=== PATIENT | male | born 1935 | race Caucasian/White ===

== ENCOUNTER 2016-08-17 20:13 | Emergency (ER) | payer MEDICARE ==
[~2016-08-17 20:13] MED LIST: BUM2 PO; CORDARONE PO; FISH OIL; HYDROCHLOROT25 MG PO; KLOR-CON M2020 MEQ PO; LISINOPRIL40 MG PO; NORCO1 TA2 PO; SPIRIVA INH; VENTOLIN HFA INH; XARELTO20 MG PO
== END 2016-08-18 00:21 | disposition home or self-care (01) ==
LOC: ER 20:13
PROC: 2W3DX1Z Immobilization of Left Lower Arm using Splint (ICD-10-PCS; principal; 2016-08-17)
DX: S52.501A Unspecified fracture of the lower end of right radius, initial encounter for closed fracture (principal); S01.01XA Laceration without foreign body of scalp, initial encounter; J44.9 Chronic obstructive pulmonary disease, unspecified; I11.0 Hypertensive heart disease with heart failure; I50.9 Heart failure, unspecified; I25.10 Atherosclerotic heart disease of native coronary artery without angina pectoris; I48.91 Unspecified atrial fibrillation; Z88.8 Allergy status to other drugs, medicaments and biological substances; Z79.899 Other long term (current) drug therapy; W19.XXXA Unspecified fall, initial encounter
CPT/HCPCS: 70450; 72125; 73110-LT; 99284; A9270-GY

== ENCOUNTER 2016-08-30 13:49 | Inpatient (IN) | payer MEDICARE ==
--- NOTE | ~2016-08-30 | HP ---
History And Physical [place] [id number] [facility] [place]. [address] NAME: ZACHARIAH SMITH SR : 37 STATUS : ADM IN PAT#: [id number] AGE: 81 ADM/REG DATE : 08/30/16 MR#: [id number] REPORT SERV DATE: 08/31/16 DICTATED BY: JVOAN MORRIS DATE: 08/30/16 REPORT STATUS : Draft TRANSCRIBED BY: MODL DATE: 08/30/16 DATE OF ADMISSION: 08/30/2016 CHIEF COMPLAINT: Frequent falls over the last few weeks with incidental left wrist fracture who had an additional fall yesterday. He was on the floor for last 12 hours, found by daughter and sent to emergency room. HISTORY OF PRESENT ILLNESS: The patient is a 81-year-old male, past medical history of ankylosing spondylitis with curvature spine causing O2 dependent restrictive lung disease, atrial fibrillation, arrhythmia followed by Dr. Lopes. Neonatal Specialist, Dr. Kinsey. 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 There are no worsening symptoms, but no relieving symptoms either. The patient does report that he has pain in his left arm due to recent fracture, was to be followed up with Dr. Newman, but due to repeated falls, the patient was unable to make appointment and has still been splinted since his emergency room approximately 10 days ago. REVIEW OF SYSTEMS: For additional review of systems: CONSTITUTIONAL: No fever or chills, but does have increased weakness. EYES: Does have left eye enucleation. No right eye visual pain or changes. ENT: Does not have any sore throat or congestion. NEURO: No headache or reported confusion, but does have progressive weakness, generalized. SKIN: Does have abrasions at fall. No rashes. He is on anticoagulation. Has some mild bruising. RESPIRATORY: No shortness of breath or dyspnea. CV: No chest pain or palpitations. GI: No nausea, vomiting, or diarrhea. : No dysuria or hematuria. MUSCULOSKELETAL: Does have myalgias with broken left wrist. ENDO: Does have increased fatigue. No polyuria. HEME: No bleeding, but does have bruising, increased after having a fall. ADDITIONAL SKIN FINDINGS: Rosacea. IMMUNOLOGIC: No rhinorrhea. PSYCH: No anxiety, but mild depression after loss of son approximately a few weeks ago from heart attack. PAST MEDICAL HISTORY: Noted for prostate cancer, glaucoma, rosacea, left knee and right knee difficulties, atrial fibrillation with cardioversion by Dr. 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 History And Physical [address] [address] NAME: ZACHARIAH SMITH : 37 STATUS : ADM IN [facility]#: [id number] AGE: 81 ADM/REG DATE : 08/30/16 MR#: [id number] REPORT SERV DATE: 08/31/16 DICTATED BY: JOVAN MORRIS DATE: 08/30/16 REPORT STATUS : Draft TRANSCRIBED BY: MICHELLE DATE: 08/30/16 SURGICAL HISTORY: Noted for cardioversion, right hand surgeries for squamous cell, and has had ankle leg surgeries. SOCIAL HISTORY: No smoking, but does have smokeless tobacco use. No illicits or no alcohol. FAMILY HISTORY: Noted for hypertension and no diabetes. ALLERGIES: TO LISINOPRIL, PRAVASTATIN. HOME MEDICATIONS: Albuterol, Combigan, Bumex, Benadryl, Holstein, Zaroxolyn, multivitamin, nifedipine, Nitro-Dur, fish oil, Klor-Con, Xarelto, Spiriva. PHYSICAL EXAMINATION: VITAL SIGNS: The patient's blood pressure 122/67, temperature 97.9, pulse 76, respirations 21, O2 saturations 95% on 2 L. GENERAL: Elderly, but no acute distress. EYES: Right eye, EOMI. The left eye essentially enucleated since 60s. ENT: Dry mucous membrane. Tongue, midline. RESPIRATORY: Clear to auscultation. No wheezes. CV: Regular rate. No rubs GI: Soft, nontender, nondistended. Bowel sounds positive. : Deferred. MUSCULOSKELETAL: Does move all extremities. Does have chronic venous stasis changes in lower extremities. SKIN: Warm and dry. Does have abrasion on left eye. Does have bruising on left digits. Additionally, left hand is in soft cast as the patient has recent fracture, but does have motion in fingers and digits with mild bruising. HEME: Mild bruising in fingers. NEURO: Moves all extremities. Alert to person, place, and self. Does have diffuse weakness, but sensation is still intact in lower extremities. Moves lower extremities with toe movements, feet movement, and dancing his legs in bed. Gait not tested secondary to overall gross weakness. Symmetrical right hand strain. Left hand difficult to assess strength due to soft cast. PSYCH: Appropriate mood and affect, pleasant, but does have occasional staring episodes. EKG: Sinus rhythm with first degree, incomplete right bundle and left anterior fascicular, rate of 79, QTc 451. LABS: Urinalysis negative. Brain without contrast, enlarging bilateral frontal and parietal regions of subdural hygromas without evidence of acute hemorrhage. There is increasing mild mass effect of the frontal lobes without midline shift. No acute cortical infarct or intracranial parenchymal hemorrhage. Pelvis, negative for fracture dislocation, consistent with ankylosing spondylitis. Portable chest, shallow inspiration, otherwise negative AP. History And Physical [address] [address] NAME: ZACHARIAH SMITH : 37 STATUS : ADM IN [facility]#: [id number] AGE: 81 ADM/REG DATE : 08/30/16 MR#: [id number] REPORT SERV DATE: 08/31/16 DICTATED BY: JOVAN MORRIS DATE: 08/30/16 REPORT STATUS : Draft TRANSCRIBED BY: MODBenny DATE: 08/30/16 BMP grossly within normal limits. Alkaline phosphatase mildly elevated at 186, CPK 193. LFTs within normal limits. BUN and creatinine 17 and 1.1. Lactate 0.8. CBC, WBC count 7.3, H and H 13.3 and 42, MCV of 90.5, and platelets 293. ASSESSMENT AND PLAN: 1. Frequent falls. Progressive weakness. 2. Subdural hygromas with increasing mass effect, but no midline shift. 3. Atrial fibrillation history. 4. Ankylosing spondylitis. 5. Recent left wrist fracture. 6. Rosacea. 7. Likely restrictive lung disease. 8. Nicotine use. 9. Situational depression. 10.Throat erythema. PLAN: 1. For fall, weakness, on floor for greater than 12 hours, CPK is within normal limits, we will additionally check myoglobin. Progressive weakness. Over the last few weeks, he has had multiple falls including one traumatic causing left wrist fracture. The patient at baseline does use assist devices with motorized scooter. We will have Neurology consult and PT/OT. 2. For subdural hygromas with increasing mass effect, no midline shift, ER doctor, Dr. Akbar, has discussed with Neurosurgery, Dr. Yahaira Condon, # , aware and available. Does recommend getting MRI for further evaluation. The patient does have motion and sensations in lower extremities, but overall strength is generalized weakness. We will have neurologic consult, PT/OT, and MRI/MRA ordered for further evaluation of CT head. 3. Atrial fibrillation history. Cardioverted, in the past on calcium channel eduardo, followed by Dr. Lopes. 4. Ankylosing spondylitis. Supportive. 5. Recent left wrist fracture. Unable to make it to Dr. Newman's appointments since the ER visit secondary to a repeat fall. I will consult Dr. Newman and obtain followup plain films. 6. Rosacea. He is medication sensitive, so we will monitor. 7. Likely restrictive lung disease. O2 dependence secondary to ankylosing spondylitis. 8. Nicotine use. Nicotine patch. The patient on smokeless tobacco. 9. Situational depression. Had recent loss of son from heart attack last few weeks and could be additional component of the patient's overall generalized state. 10.Throat erythema. We will check Strep as the patient does have an exudate from posterior pharynx without cough, but does have erythema. We will start treatment if Strep positive, but otherwise the patient is afebrile and additionally asymptomatic. All questions answered of the patient and family at bedside. DISPOSITION: Pending Neurology evaluation, MRI and PT evaluation. History And Physical [address] [address] NAME: ZACHARIAH SMITH : 37 STATUS : ADM IN [facility]#: [id number] AGE: 81 ADM/REG DATE : 08/30/16 MR#: [id number] REPORT SERV DATE: 08/31/16 DICTATED BY: JOVAN MORRIS DATE: 08/30/16 REPORT STATUS : Draft TRANSCRIBED BY: MODL DATE: 08/30/16 DDN/RIKYL Jovan Morris MD / [id number] CC: Sherly Mayer MD
--- NOTE | ~2016-08-30 | PUL ---
[address] [place]. [address] NAME: ZACHARIAH SMITH SR : 37 STATUS : ADM IN PAT#: [id number] AGE: 81 ADM/REG DATE : 08/30/16 MR#: [id number] REPORT SERV DATE: 09/01/16 DICTATED BY: RYAN WORKMAN DATE: 09/01/16 REPORT STATUS : Draft TRANSCRIBED BY: MODL DATE: 09/01/16 PULMONARY FUNCTION TEST STUDY: Overnight pulse oximetry done on 3 L. FINDINGS: Total recording time 5 hours 56 minutes, mean pulse 74, mean oxygen saturation 93%. Oxygen saturation of less than 88%, 21 minutes and 26 seconds, 6% of the night. INTERPRETATION: The patient has continued hypoxemia on 3 L nasal cannula. Clearly, the patient has nocturnal hypoxia. Evaluating the SpO2 curve, the patient does have findings consistent with possible sleep apnea. Recommend outpatient evaluation if this is of concern. HFQ/MODL Ryan Workman MD / [id number] CC: Sherly Novak MD
--- NOTE | ~2016-08-30 | HP ---
History And Physical [address] [address] NAME: ZACHARIAH SMITH SR : 37 STATUS : ADM IN [facility]#: [id number] AGE: 81 ADM/REG DATE : 08/30/16 MR#: [id number] REPORT SERV DATE: 09/01/16 DICTATED BY: JOURDAN SEXTON DATE: 09/01/16 REPORT STATUS : Draft TRANSCRIBED BY: MODL DATE: 09/01/16 DATE OF ADMISSION: 08/30/2016 CHIEF COMPLAINT: Left wrist fracture from fall on 08/17/2016. HISTORY OF PRESENT ILLNESS: Zachariah Smith Sr is a 81-year-old retired male, who has multiple medical problems including ankylosing spondylitis with severe restrictive lung disease, lower extremity weakness, atrial fibrillation (on Xarelto), and a frontal hygroma with history of increasing falls. On 08/17/2016, he sustained a fall at home injuring his left wrist. He was seen at this hospital ER, where x-rays were taken showing a distal comminuted radius fracture with impaction and displacements. He was placed in a sugar-tong splint and was supposed to follow up with me, but unfortunately was not able to make the visit. He started experiencing worsening falls and was admitted on 08/30/2016. A CT of his head showed frontal hygroma with no shifts present. He has been admitted and further workup is pending. PAST MEDICAL HISTORY: 1. 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 2. Ankylosing spondylitis with restrictive lung disease. 3. Left eye traumatic blindness. 4. Lower extremity weakness with frequent falls - secondary to above. 5. Frequent falls secondary to lower extremity weakness and of the above problems. 6. Atrial fibrillation, on Xarelto. 7. Hypertension. 8. Glaucoma. 9. Rosacea. 10.Skin cancer. 11.Prostate cancer. PAST SURGICAL HISTORY: Skin cancer removal, ankle surgeries. ALLERGIES: LISINOPRIL CAUSES RASH, PRAVASTATIN CAUSES RASH AND MUSCLE ACHES. HOME MEDICATIONS: Ventolin puff two puffs INH daily, Combigan ophthalmic solution one drop twice a day in right eye, Bumex 2 mg b.i.d., Benadryl 25 mg p.r.n. for skin redness, hydrocodone 10/325 mg one p.o. t.i.d. p.r.n. for pain, Zaroxolyn 2.5 mg p.o. daily p.r.n. for swelling, multivitamin tabs one daily, nifedipine ER 60 mg p.o. daily, nitroglycerin dermal patch 0.4 mg topical daily, fish oil 1200 mg capsule daily, potassium chloride 20 mEq daily, Xarelto 20 mg daily, and Spiriva inhaler one cap inhaler daily p.r.n. REVIEW OF SYSTEMS: Hard of hearing, he has dental work, blind left eye, worsening frequent falls and losses and weakness. He uses a motorized chair for mobilization and has limited ability to walk. He uses smokeless tobacco. He has joint pain, hard of hearing, and bruises easily. (see past medical history and past surgical history, otherwise no other significant changes in the 13- point review of systems). History And Physical [address] [place]. [address] NAME: ZACHARIAH SMITH SR : 37 STATUS : ADM IN [facility]#: [id number] AGE: 81 ADM/REG DATE : 08/30/16 MR#: [id number] REPORT SERV DATE: 09/01/16 DICTATED BY: JOURDAN SEXTON DATE: 09/01/16 REPORT STATUS : Draft TRANSCRIBED BY: MICHELLE DATE: 09/01/16 FAMILY HISTORY: Father from what I believe from medical complications and mother who of an CA. He has six siblings, all who . PHYSICAL EXAMINATION: GENERAL: A 81-year-old male sleeping in a reclined chair position, in no acute distress. VITAL SIGNS: Blood pressure 102/60, heart rate 62, O2 sats 95% on 2 L, respiratory rate 18, and temperature 98. HEENT: Left eye traumatic blindness with deformity of the eye. He is hard of hearing. He has false dentures in place and pharynx is slightly erythematous. EXTREMITIES: C-spine with decreased range of motion in all directions. Both shoulders with forward flexion of only 120 degrees. Right elbow, wrist, and all fingers with functional range of motion. All fingers, right and left hand with osteoarthritic changes with Heberden's nodes and angular deformities of the DIP joints especially both index fingers. Both thumbs are slightly tender over the thumb CMC joint. Positive grind test. Left upper extremity is in a sugar-tong splint, this was taken down. The swelling in the distal forearm/radius appears to have resolved from the fracture and the fracture site is head filter press tender over the distal radius. There is a slight deformity of the wrist noted. Fingers with functional range of motion, but wrist range of motion not performed. 2+ radial ulnar pulses. TLS spine is significant for significant kyphosis. Lower extremity exam is not complete due to inability to move from the sitting position, but both ankles with 1+ edema. All nails with onychomycosis. Multiple x-rays taken 08/17/2016 and 08/30/2016 shows severely comminuted distal radius intra-articular fracture with displacement secondary to impaction. The carpus appears normal. IMPRESSION: 1. Left wrist impacted fracture from fall on 08/17/2016. 2. Worsening falls - multifactorial. 3. Ankylosing spondylosis with severe restrictive lung disease. 4. Atrial fibrillation - on Xarelto. PLAN: 1. The patient is not a good surgical candidate and at risk for severe complication. Both the patient and his daughter Courtney Hook were very aware of such risk factors and have accepted the outcomes of nonsurgical treatment. 2. Change sugar-tong splint to volar wrist splint. 3. Follow up with me in three weeks. NOEMY/MICHELLE Jourdan Sexton M.D. / [id number] History And Physical [address] [address] NAME: ZACHARIAH SMITH SR : 37 STATUS : ADM IN [facility]#: [id number] AGE: 81 ADM/REG DATE : 08/30/16 MR#: [id number] REPORT SERV DATE: 09/01/16 DICTATED BY: JOURDAN SEXTON DATE: 09/01/16 REPORT STATUS : Draft TRANSCRIBED BY: MICHELLE DATE: 09/01/16 CC: Sherly Novak MD
--- NOTE | ~2016-08-30 | DS ---
Discharge Summary [facility] [address] [place]. [address] NAME: ZACHARIAH SMITH SR : 37 STATUS : DIS IN PAT#: [id number] AGE: 81 ADM/REG DATE : 08/30/16 MR#: [id number] REPORT SERV DATE: 09/04/16 DICTATED BY: GEMMA RUST DATE: 09/03/16 REPORT STATUS : Draft TRANSCRIBED BY: MODL DATE: 09/03/16 ADMISSION DATE: 08/30/2016 DISCHARGE DATE: 09/03/2016 PRINCIPAL DIAGNOSIS: Subdural hygroma, bilateral. SECONDARY DIAGNOSES: Ankylosing spondylitis with gait disorder and frequent falls, wrist fracture, restrictive lung disease plus obstructive sleep apnea leading to cor pulmonale, anasarca, and atrial fibrillation. HISTORY PRESENT ILLNESS: See Dr. Patel's dictation 08/30/2016. HOSPITAL COURSE: The patient was admitted with a fall, recurrent. The patient had been seen a couple of weeks prior, found to have a subdural hematoma. However, this was felt to be chronic and not actually actively bleeding. He was continued upon his Xarelto and until he was admitted with a second fall resulting in a wrist fracture and a repeat CT showed that the hygroma had actually grown. The Xarelto was discontinued. Neurosurgery was called, and they did not wish to have him transferred. He diuresed well. He rehabilitated well and actually was approved over to [facility] who accepted him on 09/03/2016. I discussed with the coordinator. Arrangements were made to follow up with the neurosurgeons following discharge for reimaging of his brain and assurance that the hygroma has gone away. He will stay off Xarelto until that time. He was released instead to [facility] with the following medications; potassium, magnesium, Hytrin, Demadex, nicotine gum, Lortab, Timoptic, brimonidine, Spiriva. He will follow up with Geeta Armas MD his primary care provider p.r.n. Greater than 30 minutes were spent in the care of this patient and discharge planning on discharge day. MATILDA/MICHELLE Gemma Rust M.D. / [id number] CC: Sherly Novak MD Alexander Stratienko, M.D. [facility]
--- NOTE | ~2016-08-30 | CN ---
Consultation Report [facility] [address] [place]. [address] NAME: ZACHARIAH SMITH SR : 37 STATUS : ADM IN PAT#: [id number] AGE: 81 ADM/REG DATE : 08/30/16 MR#: [id number] REPORT SERV DATE: 08/31/16 DICTATED BY: ZEINAB ROSSI DATE: 08/31/16 REPORT STATUS : Draft TRANSCRIBED BY: MODL DATE: 08/31/16 CONSULTATION DATE OF CONSULTATION: 08/31/2016 REASON FOR CONSULTATION: Frequent falls with resultant subdural hygroma/hematoma and fractured left wrist. HOSPITALIST: Dr. Michael Polo. HISTORY OF PRESENT ILLNESS: The patient is a 81-year-old male, who has a longstanding history of lower extremity weakness and ankylosing spondylitis. He uses a power chair to get around. He states that over the last few weeks, he has had some frequent falls. Two weeks ago on 08/17/2016 of this month, he was out in his yard in his power chair, he was poisoning [email or web address]. His power chair got stuck in a hole. Consequently, he got out of his power chair to fix the problem. He became imbalanced and grabbed hold of the steering arm of the chair. He pulled the power chair over and the steering portion came loose, and it hit him in the head on the left side. He fell backwards and finally got up. He got into the house and his daughter helped him to the bed. She turned on the air conditioner, so he could relax. He stated that he started to feel cold, and he stood up to turn off the air conditioner and he fell backwards onto the floor. He fell on an outstretched left hand, and felt immediate pain. He laid there on the floor for approximately 12 hours until someone found him, and brought him to the emergency department. His arm was splinted in the emergency room. He was supposed to follow up with Dr. Newman, but because of repeated falls, he was unable to make the appointment. His family brought him in yesterday because of frequent falling and weakness. PAST MEDICAL HISTORY: Ankylosing spondylitis, restrictive lung disease caused by the severe curvature of his spine, atrial fibrillation (on Xarelto), hypertension, left eye blindness at a young age from a traumatic accident, prostate cancer, progressive weakness, glaucoma, rosacea, and skin cancer. PAST SURGICAL HISTORY: Skin cancer removal and ankle surgeries. HOME MEDICATIONS: Includes Ventolin inhaler, Combigan ophthalmic solution 1 drop right eye b.i.d., Bumex 2 mg b.i.d., Benadryl 50 mg daily p.r.n., Grayling 10/325 mg 1 tablet t.i.d., Zaroxolyn 2.5 mg p.r.n., multivitamin daily, Adalat CC 60 mg daily, Nitro-Dur 0.4 mg patch daily, fish oil 1200 mg daily, Klor-Con 20 mEq p.o. t.i.d., Xarelto 20 mg daily, and Spiriva HandiHaler 1 capsule daily. ALLERGIES: LISINOPRIL AND PRAVASTATIN. SOCIAL HISTORY: The patient is a . He had a total of seven children, two are now . He does not smoke, but chews smokeless tobacco. Does not drink or use illicits. Consultation Report [address] [address] NAME: ZACHARIAH SMITH SR : 37 STATUS : ADM IN PAT#: [id number] AGE: 81 ADM/REG DATE : 08/30/16 MR#: [id number] REPORT SERV DATE: 08/31/16 DICTATED BY: ZEINAB ROSSI DATE: 08/31/16 REPORT STATUS : Draft TRANSCRIBED BY: MICHELLE DATE: 08/31/16 FAMILY HISTORY: His mother at the age of 92 from an MT. His father from "mishaps from a quack doctor." He has six siblings, who are now all . REVIEW OF SYSTEMS: See HPI. PHYSICAL EXAMINATION: GENERAL: The patient is a 81-year-old male, who stands 5 feet 3 inches tall, and weighs 236 pounds. VITAL SIGNS: He is afebrile. Heart rate 78, respiratory rate 20, O2 saturations on room air 95%, and blood pressure 117/64. NEUROLOGIC: The patient is oriented x4. He is pleasant, communicates appropriately. Speech is clear. Language is fluent. Right pupil is 3 mm and reactive. Right eye EOMs intact. Left eye is white glaze, no vision reported from that eye. He does have complete ptosis with the left eye. Otherwise cranial nerves are intact. There is no facial droop. No tongue deviation. He can move all extremities x4. He has limitation in range of motion with the left arm due to the fracture and casting. Strength in the right arm is 5/5. Right arm DTRs are 2+ bilaterally. No reported sensory deficits. He can wiggle his fingers. In the left arm, there is some bruising around the cast. Lower extremity strength is 3/5 bilaterally. Patellar reflex on the right is 1+, unable to elicit a reflex on the left. Slight upgoing toes. The patient has diminished sensation. Vibratory in position. Diminished sensation, vibratory and temperature sensation in the lower extremities from the toes to above the ankle. He did not get up to ambulate. He is very weak this morning. NECK: No carotid bruits, JVD, or thyromegaly. CHEST: Lung sounds are clear. Diminished in the bases. No wheezing. CARDIAC: Regular rate and rhythm. DIAGNOSTIC DATA: CBC is normal. BMP is relatively normal. CPK of 61, myoglobin of 140. UA is negative for UTI. X-ray of the left wrist shows a distal left radial fracture. CT of the brain, bilateral frontal and parietal subdural hygromas which are enlarging, but there is no shift, and there is no acute hemorrhage. ASSESSMENT/PLAN: Frequent falls. Multifactorial in nature. The patient is weak. He has chronic knee pain. He has some mild peripheral neuropathy, and has bilateral frontal and parietal subdural hygromas. At this point, the patient will undergo an MRI of the brain with and without gadolinium and an MRA of the head and neck. We will continue his Xarelto since there is no active hemorrhaging. PT and OT will be consulted. Additional lab work will be checked, and once the results are in, we will progress from there. Thank you again for including us in consultation. We will follow with you. LLJ/MODL Consultation Report [id number] [place] [address] NAME: ZACHARIAH SMITH : 37 STATUS : ADM IN [facility]#: [id number] AGE: 81 ADM/REG DATE : 08/30/16 MR#: [id number] REPORT SERV DATE: 04/28/17 DICTATED BY: ZEINAB ROSSI DATE: 08/31/16 REPORT STATUS : Draft TRANSCRIBED BY: MICHELLE DATE: 08/31/16 Zeinab Rossi, ACNP-BC / [id number] CC: Sherly Mayer MD Robert Mastey, M.D.
[2016-08-30 14:27] LABS: BASOPHILS 0.3 %; BASOPHILS ABSOLUTE 0.02 10/3/uL (0.0-0.16); EOSINOPHILS 2.9 %; EOSINOPHILS ABSOLUTE 0.21 10/3/uL (0.0-0.53); HEMOGLOBIN 13.3 g/dL (13.6-17.8); IMMATURE GRANULOCYTES 0.7 %; IMMATURE GRANULOCYTES ABSOLUTE 0.05 10/3/uL (0.0-0.11); LYMPHOCYTES 13.9 %; LYMPHOCYTES ABSOLUTE 1.02 10/3/uL (0.67-4.30); MEAN CORPUS HGB CONC 31.7 g/dL (32.0-36.0); MEAN CORPUSCULAR HEMOGLOB 28.7 pg (26.0-34.0); MEAN PLATELET VOLUME 9.2 fL (9.2-13.0); MONOCYTES 10.6 %; MONOCYTES ABSOLUTE 0.78 10/3/uL (0.21-1.20); NEUTROPHILS 71.6 %; NEUTROPHILS ABSOLUTE 5.25 10/3/uL (2.02-8.40); PLATELET COUNT 239 10/3/uL (150-400); RBC DISTRIBUTION WIDTH 13.9 % (12.0-16.0); RED CELL COUNT 4.64 10/6/uL (4.7-6.1); WHITE BLOOD CELLS 7.3 10/3/uL (4.5-10.5)
[2016-08-30 14:29] LABS: MANUAL DIFF NO %; MEAN CORPUSCULAR VOLUME 90.5 fL (80-100)
[2016-08-30] MEDS ORDERED: NORCO1 TAB PO (14:37)
[2016-08-30] MEDS ORDERED: XARELTO20 MG PO (14:37)
[2016-08-30] MEDS ORDERED: BUM2 PO (14:38)
[2016-08-30] MEDS ORDERED: BEN25 PO (14:38)
[2016-08-30] MEDS ORDERED: MULTIVITAMI1 PO (14:38)
[2016-08-30] MEDS ORDERED: KLOR-CON M2020 MEQ PO (14:39)
[2016-08-30] MEDS ORDERED: SPIRIVA INH (14:39)
[2016-08-30] MEDS ORDERED: ADALAT CC60 MG PO (14:39)
[2016-08-30] MEDS ORDERED: NITROII20C TOP (14:40)
[2016-08-30] MEDS ORDERED: COMBIGAN0.2 MG/0.5 OPH (14:43)
[2016-08-30] MEDS ORDERED: ZAROX2.5B PO (14:43)
[2016-08-30] MEDS ORDERED: FISH OIL1200 MG PO (14:43)
[2016-08-30 14:44] LABS: A/G RATIO 0.8 (0.7-1.9); ALBUMIN 2.8 G/DL (3.5-5.0); ALKALINE PHOSPHATASE 186 U/L (45-117); CALCIUM, SERUM 10.3 MG/DL (8.5-10.4); CHLORIDE, SERUM 105 MMOL/L (96-112); CO2 (CARBON DIOXIDE) 33 MMOL/L (24-34); CPK (IF ELEVATED MB BANDS) 193 U/L (0-200); GFR AFRICAN AMERICAN 74 ML/MIN (>=60); GFR NON AFRICAN AMERICAN 64 ML/MIN (>=60); GLOBULIN 3.5 G/DL (2.5-4.1); GLUCOSE, SERUM 90 MG/DL (60-99); POTASSIUM, SERUM 4.2 MMOL/L (3.5-5.3); SGOT(AST) 38 U/L (5-40); SGPT(ALT) 22 U/L (5-65); SODIUM, SERUM 143 MMOL/L (135-148); TOTAL BILIRUBIN 0.8 MG/DL (0-1.2); TOTAL PROTEIN 6.3 G/DL (6.0-8.5)
[2016-08-30] MEDS ORDERED: VENTOLIN HFA INH (14:44)
[2016-08-30 14:45] LABS: LACTATE 0.8 MMOL/L (0.3-2.4)
[2016-08-30 14:45] LABS: BUN (BLOOD UREA NITROGEN) 17 MG/DL (6-23)
[2016-08-30 17:14] LABS: ASCORBIC ACID (UR NOT ORDER) NEG (NEG); BILIRUBIN, URINE NEGATIVE (NEG); ER URINALYSIS TAT 0 Hrs 08 Mins; KETONE, URINE 20 MG/DL (NEG); LEUKOCYTE ESTERASE(NOT OR NEG (NEG); NITRITE (URINE) NEG (NEG); WBC (NOT ORDERED) (RFLEX) 1 (0-5)
[2016-08-30 21:22] LABS: FREE T4 1.89 NG/DL (0.76-1.46); ULTRASENSITIVE TSH 0.652 MCIU/ML (0.358-3.740)
[2016-08-31 06:06] LABS: BASOPHILS 0.4 %; BASOPHILS ABSOLUTE 0.03 10/3/uL (0.0-0.16); EOSINOPHILS 4.4 %; HEMATOCRIT 42.3 % (40.0-51.0); HEMOGLOBIN 12.9 g/dL (13.6-17.8); IMMATURE GRANULOCYTES 0.7 %; IMMATURE GRANULOCYTES ABSOLUTE 0.05 10/3/uL (0.0-0.11); LYMPHOCYTES 14.3 %; LYMPHOCYTES ABSOLUTE 0.98 10/3/uL (0.67-4.30); MEAN CORPUS HGB CONC 30.5 g/dL (32.0-36.0); MEAN CORPUSCULAR HEMOGLOB 28.4 pg (26.0-34.0); MEAN PLATELET VOLUME 9.5 fL (9.2-13.0); MONOCYTES 8.9 %; MONOCYTES ABSOLUTE 0.61 10/3/uL (0.21-1.20); NEUTROPHILS 71.3 %; PLATELET COUNT 255 10/3/uL (150-400); RBC DISTRIBUTION WIDTH 13.8 % (12.0-16.0); RED CELL COUNT 4.55 10/6/uL (4.7-6.1); WHITE BLOOD CELLS 6.9 10/3/uL (4.5-10.5)
[2016-08-31 06:09] LABS: MANUAL DIFF NO %
[2016-08-31 06:25] LABS: BUN (BLOOD UREA NITROGEN) 18 MG/DL (6-23); CALCIUM, SERUM 9.8 MG/DL (8.5-10.4); CHLORIDE, SERUM 104 MMOL/L (96-112); CO2 (CARBON DIOXIDE) 30 MMOL/L (24-34); CPK 61 U/L (0-200); CREATININE 1.07 MG/DL (0.70-1.30); GFR AFRICAN AMERICAN 76 ML/MIN (>=60); GFR NON AFRICAN AMERICAN 66 ML/MIN (>=60); MYOGLOBIN, SERUM 140 NG/ML (0-85); POTASSIUM, SERUM 4.2 MMOL/L (3.5-5.3); SODIUM, SERUM 139 MMOL/L (135-148)
[2016-08-31 06:26] LABS: GLUCOSE, SERUM 68 MG/DL (60-99)
[2016-08-31 12:51] LABS: CALCIUM IONIZED 5.45 MG/DL (3.80-4.80)
[2016-08-31 13:00] LABS: ALBUMIN 2.7 G/DL (3.5-5.0); ALKALINE PHOSPHATASE 169 U/L (45-117); DIRECT BILIRUBIN 0.2 MG/DL (0.0-0.4); FOLATE 27.7 NG/ML (>5.2); INDIRECT BILIRUBIN(NOT ORDER) 0.5 MG/DL (0.1-0.9); SGOT(AST) 28 U/L (5-40); SGPT(ALT) 22 U/L (5-65); TOTAL BILIRUBIN 0.7 MG/DL (0-1.2); TOTAL PROTEIN 5.9 G/DL (6.0-8.5)
[2016-08-31 13:19] LABS: CORTISOL AM 20.7 UG/DL (4.3-22.4)
[2016-08-31 13:20] LABS: INTACT PTH (ICMA) 163.7 PG/ML (10.0-65.0)
[2016-08-31 13:57] LABS: PROTIME (NOT ORD) 22.4 SEC (12.0-14.5)
[2016-09-01 05:28] LABS: HEMATOCRIT 39.3 % (40.0-51.0); HEMOGLOBIN 12.3 g/dL (13.6-17.8)
[2016-09-01 05:39] LABS: ALBUMIN 2.7 G/DL (3.5-5.0); ALKALINE PHOSPHATASE 169 U/L (45-117); BUN (BLOOD UREA NITROGEN) 21 MG/DL (6-23); CALCIUM, SERUM 9.9 MG/DL (8.5-10.4); CHLORIDE, SERUM 102 MMOL/L (96-112); CO2 (CARBON DIOXIDE) 32 MMOL/L (24-34); CREATININE 1.27 MG/DL (0.70-1.30); DIRECT BILIRUBIN 0.2 MG/DL (0.0-0.4); GFR AFRICAN AMERICAN 62 ML/MIN (>=60); GFR NON AFRICAN AMERICAN 53 ML/MIN (>=60); GLUCOSE, SERUM 110 MG/DL (60-99); INDIRECT BILIRUBIN(NOT ORDER) 0.4 MG/DL (0.1-0.9); POTASSIUM, SERUM 3.8 MMOL/L (3.5-5.3); SGOT(AST) 24 U/L (5-40); SGPT(ALT) 20 U/L (5-65); SODIUM, SERUM 141 MMOL/L (135-148); TOTAL BILIRUBIN 0.6 MG/DL (0-1.2); TOTAL PROTEIN 5.7 G/DL (6.0-8.5)
== END 2016-09-03 15:45 | DRG 816 ==
LOC: ER 13:49 → 2SO 19:25
PROVIDERS: Hospitalist; Internal Medicine; Nurse Practitioner; Orthopaedic Surgery Hand Surgery; Student in an Organized Health Care Education/Training Program
DX: D18.1 Lymphangioma, any site (principal); I27.81 Cor pulmonale (chronic); G62.9 Polyneuropathy, unspecified; I48.91 Unspecified atrial fibrillation; Z99.81 Dependence on supplemental oxygen; J44.9 Chronic obstructive pulmonary disease, unspecified; I10 Essential (primary) hypertension; J98.4 Other disorders of lung; E78.5 Hyperlipidemia, unspecified; F43.21 Adjustment disorder with depressed mood; H54.42 Blindness, left eye, normal vision right eye; Z85.46 Personal history of malignant neoplasm of prostate; S62.102D Fracture of unspecified carpal bone, left wrist, subsequent encounter for fracture with routine healing; M45.9 Ankylosing spondylitis of unspecified sites in spine; L71.9 Rosacea, unspecified; Z72.0 Tobacco use; L53.8 Other specified erythematous conditions; R29.6 Repeated falls; Z85.828 Personal history of other malignant neoplasm of skin; M40.205 Unspecified kyphosis, thoracolumbar region; G89.29 Other chronic pain; M25.569 Pain in unspecified knee; G47.33 Obstructive sleep apnea (adult) (pediatric)
CPT/HCPCS: 70450; 71010; 72170; 73110-LT; 80048; 80053; 80076; 81001; 82140; 82330; 82533; 82550; 82607; 82746; 83605; 83735; 83874; 83970; 84439; 84443; 85014; 85018; 85025; 85610; 87070; 87880; 93005; 94762; 97162-GP; 99285; A9270-GY; G8978-CL-GP; G8979-CL-GP; J1170; J3475